=== PATIENT | female | born 1995 | race Caucasian/White ===

== ENCOUNTER → 2019-04-27 12:24 | Outpatient (CLI) | payer OTHER, SELFPAY ==
--- NOTE | 2019-04-27 12:34 | RAD_ITS ---
STUDY: X-RAY - CERVICAL SPINE REASON FOR EXAM: Female, 24 years old. Neck pain and right arm pain and numbness. TECHNIQUE: 5 view(s) of the cervical spine were obtained. COMPARISON: None FINDINGS: Normal anterior atlantoaxial articulation. Normal odontoid process. There is straightening of the normal cervical lordosis. Normal vertebral bodies and endplates. Normal disc space heights. Normal visualized intervertebral neuroforamina. The soft tissue structures are unremarkable. RAD/Cerv Spine 4 or 5 Views IMPRESSION: Straightening of the normal cervical lordosis. Electronically Signed: Pasha Rudd, at 13:04 EDT , Service support ,
== END ==
PROVIDERS: Family Provider Family Medicine; PCP Family Medicine; Referring Provider Family Medicine; Visit Provider Family Medicine
DX: M54.2 Cervicalgia (principal)
CPT/HCPCS: 72050

== ENCOUNTER 2019-06-15 10:30 | Outpatient (RCR) | payer OTHER, SELFPAY ==
--- NOTE | 2019-05-23 13:23 | HP.PTEVAL_ITS ---
Patient's Visit Information ALYSSIA JALLOH is a 24 year old F referred to Physical Therapy by Bill Colon MD with a diagnosis of cervicalgia. Date of Evaluation: 05/23/19 Physical Therapist: ANGELITO Almodovar - Visit Plan Frequency: 2x /Week Duration: 2-4 Weeks Plan: 2X/ week for 2-4 weeks for MT to R levator and mid trap, stretching of the same, scapular strengthening, and if needed extension centralizaation exercise of the c-spine, postural exercises with US and E-stim as needed with HEP - Subjective Findings: Pt years ago started out with tingling in fingers and in wrist and could not sleep at night and now has gotten worse.....more frequent. She is L handed. When she wakes up at night she has uncomfortable feeling around R shoulder. It does not get better with changing positions. She Dr Jenkins said that her neck muscles on the R are tight. she has had migranes in the past and are now less frequent. She can now work through the [employer]. It used to be increase pain when on the computer. She works on a computer a lot. She tries to work on her posture and has a standing desk as well. - Pain neck pain Pain Intensity (Out of 10): 0 R shoulder pain Pain Intensity (Out of 10): 0 - Objective L handed: 72# and R 68#. C-spine AROM: flex 100%, ext 100%, SB B 100%, Rot B 100%. Palpation: tender and tight R > L mid strap and levator scap. UE MMT: B shld flex 4/5, abd 4/5, ER/ER 4/5. no pain with neck retraction or extension. Discussed postrue a lot and her neck seems to hurt more toward the end of the weak and she is on the computer a lot. Discusssed strategies to help correct posture throughout the day. - Goals Goal 1:: I HEP Goal Time Frame: 4-6 Weeks Goal 2:: Decrease R arm pain to no pain in a 3 week time period Goal Time Frame: 4-6 Weeks Goal 3:: Sit with better posture at work and demonstrate here in the clinic Goal Time Frame: 4-6 Weeks Goal 4:: Decrease muscular tightness of the R mid trap and levator to feel like the L side with hopefully less pain Goal Time Frame: 4-6 Weeks - Rehabilitation Potential Rehabilitation Potential: Good - Anticipated Interventions Patient/Client Instruction: Educate patient on: Condition, Plan of Care For the Purpose of:: To decrease pain, To increase ROM, To improve nutrient delivery to tissue, To improve muscle performance and motor function, To improve ability to perform ADL's, To increase tolerance to activity/condition/position, To improve performance and independence with ADL's Therapeutic Exercise to Include: Strength training, Postural training, Flexi bilty training, Active ROM, Scapular Strength/Stabilization For the Purpose of:: To decrease pain, To improve nutrient delivery to tissue, To improve muscle performance and motor function, To improve ability to perform ADL's, To increase tolerance to activity/condition/position, To improve performance and independence with ADL's, To decrease soft tissue restriction, To increase flexibility/ROM Manual Therapy Techniques to Include: Soft tissue mobilization For the Purpose of:: To decrease pain, To improve nutrient delivery to tissue, To decrease soft tissue restriction, To increase flexibility/ROM Thermo therapy (hot pack): Yes Ultrasound (thermal/non thermal): Yes For the Purpose of:: To decrease pain, To improve nutrient delivery to tissue Thank you for the opportunity to evaluate your patient. For Medicare and Medicare HMO plans, please review the plan of care and approve it. It will need to be FAXED BACK to us at [phone] for Medicare purposes. For Medicare only, by signing this I certify the plan of care. Please let me know if there are questions or concerns regarding this plan of care. Physician Signature: Date:
--- NOTE | 2019-09-18 16:05 | HP.PTDCSUM_ITS ---
It has been my pleasure to treat ALYSSIA JALLOH referred by Bill Colon MD, with the diagnosis of cervicalgia for a total of 6 visit(s). Discharge Date: 09/18/19 Please see the following information for a summary of their discharge status. Subjective: Not too bad today considering it's towards the end of the work week. neck pain Pain Intensity (Out of 10): 0 R shoulder pain Pain Intensity (Out of 10): 0 R wrist pain Pain Intensity (Out of 10): 1 % Improvement: 75 Objective/Function: Discussing neutral wrist positioning and working on maintaining throughout today's tasks - good ability to maintain. OBIE Mcdaniel able to speak with pt today during visit about over-use and neutral wrist positioning. Giving pt several stretches and exercises for isometric strength and stabilization in neutral. Opting against US today d/t reduced wrist pain. Reporting instability in quadruped on RUE > as compared to LUE with rows. Some difficulty with neutral head in prone/quadruped positions - repeated cues to com plete correctly. Able to fill out paperwork I after Rx - not billed for this time. Goal 1:: I HEP Goal 2:: Decrease R arm pain to no pain in a 3 week time period Goal 3:: Sit with better posture at work and demonstrate here in the clinic Goal 4:: Decrease muscular tightness of the R mid trap and levator to feel like the L side with hopefully less pain Plan: D/c to I program after return from trip. To call/see OBIE Mcdaniel if wrist pain persists. Discharge Comments: DC PT If there are questions or concerns regarding this patient's physical therapy, please feel free to call me at [phone]. Thank you for the referral of this patient. Sincerely, Katlyn Wang, MPT
== END 2019-06-15 19:00 | disposition home or self-care (01) ==
LOC: PT 10:30
PROVIDERS: Family Provider Family Medicine; PCP Family Medicine; Referring Provider Family Medicine; Visit Provider Family Medicine
DX: M54.2 Cervicalgia (principal)
CPT/HCPCS: 97110; 97140; 97161; 97530

== ENCOUNTER → 2021-02-26 12:42 | Outpatient (CLI) | payer OTHER, SELFPAY | PROVIDERS: Visit Provider Physician Assistant | DX: Z11.52 Encounter for screening for COVID-19 (principal) | CPT/HCPCS: 87635; U0005; U0003 ==

== ENCOUNTER → 2022-03-30 | Outpatient (CLI) | payer OTHER, SELFPAY ==
[2022-04-05 11:08] LABS: HPV Reflexed? NOT INDICATED
== END | disposition home or self-care (01) ==
LOC: LABSPEC 17:48
PROVIDERS: PCP Family Medicine; Visit Provider Nurse Practitioner Women's Health
DX: Z12.4 Encounter for screening for malignant neoplasm of cervix (principal)
CPT/HCPCS: 88175; G0145

== ENCOUNTER → 2022-04-17 | Outpatient (CLI) | payer OTHER, SELFPAY ==
[2022-04-17 09:26] LABS: Prolactin 10.1 ng/mL; Thyroid Stim Hormone (TSH) 1.68 uIU/mL (0.358-3.74)
[2022-04-27 12:08] LABS: Testosterone, % Free 3.38 % (0.50-2.80); Testosterone, Free 0.74 ng/dL (0.10-0.85); Testosterone, Total 22 ng/dL (13-71)
== END | disposition home or self-care (01) ==
LOC: LAB 07:55
PROVIDERS: PCP Family Medicine; Referring Provider Nurse Practitioner Women's Health; Visit Provider Nurse Practitioner Women's Health
DX: N92.6 Irregular menstruation, unspecified (principal)
CPT/HCPCS: 36415; 82627; 84146; 84402; 84403; 84443; 82626

== ENCOUNTER → 2022-05-05 | Outpatient (CLI) | payer OTHER, SELFPAY ==
[2022-05-05 09:12] LABS: Progesterone Level 12.13 ng/mL (See Comment)
== END | disposition home or self-care (01) ==
LOC: PAVLAB 08:31
PROVIDERS: PCP Family Medicine; Referring Provider Nurse Practitioner Women's Health; Visit Provider Nurse Practitioner Women's Health
DX: Z31.69 Encounter for other general counseling and advice on procreation (principal)
CPT/HCPCS: 36415; 84144